=== PATIENT | male | born 1980 | race Caucasian/White ===

== ENCOUNTER 2016-10-08 10:43 | Emergency (ER) | END 2016-10-08 14:33 | disposition home or self-care (01) | CPT/HCPCS: 36415; 80053; 83690; 85025; 96361; 96374; 96375; 99283; 99284; Q0162 ==

== ENCOUNTER 2017-05-28 13:19 | Outpatient (CLI) | payer OTHER | END 2017-05-28 13:20 | disposition home or self-care (01) | LOC: SC 13:19 | PROVIDERS: ATTEND Specialist | DX: G47.33 Obstructive sleep apnea (adult) (pediatric) (principal); F51.01 Primary insomnia; R53.83 Other fatigue | CPT/HCPCS: 99204; 99212 ==